=== PATIENT | female | born 1970 | race African-American/Black ===

== ENCOUNTER 2017-03-03 10:04 | Observation (INO) | payer OTHER ==
[2017-03-03] MEDS ORDERED: Ketorolac Tromethamine 60 MG/2 ML VIAL ONE (10:57)
[2017-03-03] MEDS ORDERED: Nitroglycerin 2% Ointment 1 INCH/1 GM Packet ONE ×2 (10:57→12:19)
[2017-03-03] MEDS ORDERED: Nitroglycerin 0.4 MG TAB (25 Tab Bottle) ONE (11:01)
[2017-03-03 11:32] LABS: #Basophils 0.1 thou/uL (0.0-0.2); #Eosinphils 0.3 thou/uL (0.0-0.7); #Lymphocytes 1.6 thou/uL (1.20-3.40); #Monocytes 0.8 thou/uL (0.11-0.59); #Neutrophils 5.5 thou/uL (1.40-6.50); %Eosinophils 3.4 % (0.0-10.0); %Lymphocytes 19.8 % (21.0-51.0); Hematocrit 41.4 % (36.0-47.0); Mean Platelet Volume 7.2 fL (7.4-10.4); Red Blood Cell (RBC) Count 4.05 mill/uL (4.20-5.40); White Blood Cell (WBC) Count 8.3 thou/uL (4.8-10.8)
[2017-03-03 11:57] LABS: ALT (SGPT) 12 U/L (8-55); AST (SGOT) 25 U/L (5-34); Alkaline Phosphatase 86 U/L (40-150); Anion Gap 11 mmol/L (10-20); BUN (Urea Nitrogen) 9 mg/dL (7.0-18.7); Bilirubin, Total 0.4 mg/dL (0.2-1.2); CK (CPK) 205 U/L (29-168); Calc. Creatinine Clearance 0 mL/min (70-130); Calcium 8.9 mg/dL (7.8-10.44); Carbon Dioxide 20 mmol/L (22-29); Chloride 109 mmol/L (98-107); Estimated GFR-MDRD Greater than 90; Globulin 3.5 g/dL (2.4-3.5); Lipase 10 U/L (8-78); Magnesium 2.1 mg/dL (1.6-2.6); Protein, Total 7.3 g/dL (6.0-8.3)
[2017-03-03 12:00] LABS: Troponin I Less than 0.010 ng/mL (< 0.028)
--- NOTE | 2017-03-03 12:06 | RAD ---
SINGLE VIEW OF THE CHEST: Comparison: 11-05-14 History: Chest pain, back pain. FINDINGS: Single view of the chest shows a normal sized cardiomediastinal silhouette. There is no evidence of consolidation, mass, or pleural effusion. The bones are unremarkable. IMPRESSION: No evidence of acute cardiopulmonary disease. POS: [facility]
[2017-03-03] MEDS ORDERED: Labetalol HCl 100 MG/20 ML VIAL ONE (12:57)
[2017-03-03] MEDS ORDERED: Ondansetron ODT 4 MG TAB SL PRN (14:07)
[2017-03-03] MEDS ORDERED: Ondansetron HCl/PF 4 MG/2 ML Vial IVP PRN (14:07)
[2017-03-03] MEDS ORDERED: Simethicone Chewable 80 MG TAB PO PRN (14:29)
[2017-03-03] MEDS ORDERED: Milk Of Magnesia 30 ML UDCUP PO PRN (14:30)
[2017-03-03] MEDS ORDERED: Loperamide HCl 2 MG CAP PO PRN (14:30)
[2017-03-03] MEDS ORDERED: Acetaminophen 325 MG TAB PO PRN (14:30)
[2017-03-03 14:34] VITALS: BMI 25.9
[2017-03-03] MEDS ORDERED: PROVENTIL INHALER 6.7 G (200 INHALATIONS) INH PRN (14:45)
--- NOTE | 2017-03-03 14:48 | PDOC.EVN ---
Event Note - Event Note Event Note: H&P: [id number] #Hypertensive Emergency 2/2 3 days of medication noncompliance * cp/OCHOA/neck pain/back pain * CXR negative for infiltrate * trend cardiac enzymes * stress test if cardiac enzymes negative * restart Metoprolol, Lisinopril and Amlodipine * check labs in AM #Tobacco abuse * counseled on cessation Admit to tele.
[2017-03-03 15:05] LABS: Troponin I Less than 0.010 ng/mL (< 0.028)
[2017-03-03] MEDS: Ferrous Sulfate 325 MG TAB PO SCH (15:33)
[2017-03-03] MEDS: Metoprolol Tartrate 25 MG TAB PO SCH (15:33)
[2017-03-03] MEDS: HYDROcodone/Acetaminophen 5/325 mg Tablet PO PRN ×2 (15:33→19:40)
--- NOTE | 2017-03-03 16:14 | HP ---
DATE OF ADMISSION: 03/03/2017 TIME: 02:41 p.m. CHIEF COMPLAINT: Chest pain, neck pain, headache and back pain. HISTORY OF PRESENT ILLNESS: This is a very pleasant 46-year-old female who reports that she consist ently takes her home antihypertensive medications including hydrochlorothiazide 25 mg daily, lisinop ril 40 mg daily, metoprolol 12.5 mg b.i.d., amlodipine 10 mg b.i.d. and hydralazine 25 mg b.i.d., wh o presents with chest pain, neck pain, headache and back pain. She reports the symptoms started ove r the last 3 days as she has since ran out of her blood pressure medications. She does not complain of any blurry revision, nausea, diaphoresis or shortness of breath. REVIEW OF SYSTEMS: A 14-point review of systems is negative except as otherwise indicated above in the HPI. PAST MEDICAL HISTORY: 1. Hypertension. 2. Asthma. 3. Tobacco abuse. PAST SURGICAL HISTORY: Hysterectomy. FAMILY HISTORY: Reviewed and noncontributory to the presenting illness. SOCIAL HISTORY: The patient reports smoking 2 cigarettes per day for about 4 years. She usually sm okes when she is at work. She denies any alcohol or illicit drug use. ALLERGIES: No known drug allergies. MEDICATIONS, LABS AND IMAGING: Please refer to chart for details. These have been reviewed. PHYSICAL EXAMINATION: VITAL SIGNS: On presentation, blood pressure 189/117, pulse 74, respirations 18, temperature 98.21 and saturating 100% on room air. GENERAL: The patient was lying comfortably in bed when I entered the room in no acute distress reshma cee on the telephone. HEENT: Normocephalic and atraumatic. NECK: Supple. No rigidity. LYMPH NODES: No cervical or supraclavicular lymphadenopathy. CARDIOVASCULAR: S1 and S2 are audible with regular rate and rhythm. LUNGS: Clear to auscultation bilaterally with no wheezes, rales or rhonchi. ABDOMEN: Soft and nontender with positive bowel sounds. No guarding, rebound or rigidity. GENITOURINARY: No CVA tenderness bilaterally. No suprapubic tenderness either. MUSCULOSKELETAL: No calf tenderness bilaterally. EXTREMITIES: No clubbing, cyanosis or edema of the extremities. PSYCHIATRIC: Appropriate, cooperative. NEUROLOGIC: Alert and oriented x3, answering questions appropriately with judgment intact. SKIN: Warm and dry with moist mucous membranes. ASSESSMENT AND PLAN: This is a 46-year-old female presenting with chest pain, neck pain, headache a nd back pain. 1. Hypertensive emergency causing symptoms of chest pain, headache, neck pain and back pain. The p atient's initial cardiac enzymes are negative and EKG is unremarkable. We will trend a total of 3 s ets of cardiac enzymes to rule out \\\\"acute coronary syndrome, then check stress test. Cardiology h as been consulted from the emergency room. We will restart the patient's metoprolol, lisinopril and amlodipine. Her hydrochlorothiazide and hydralazine will be restarted if her blood pressure remain s elevated. I do not want to start all 5 blood pressure medications at once. Monitor blood pressur e and heart rate closely on telemetry. Chest x-ray has ruled out an acute infiltrate. Check labs i n the morning. 2. Tobacco abuse. The patient has been counseled on smoking cessation. 3. Admit to telemetry.
[2017-03-03 18:07] LABS: Troponin I Less than 0.010 ng/mL (< 0.028)
[2017-03-03] MEDS: Mometasone/Formoterol 120 PUFF INHALER INH SCH (19:10)
[2017-03-03] MEDS ORDERED: Lisinopril 20 MG TAB PO SCH (19:30)
--- NOTE | 2017-03-03 19:50 | PRG ---
DATE OF SERVICE: 03/03/2017 SUBJECTIVE: Ms. Porras is a pleasant 46-year-old woman with hypertensive heart disease. She ran out of her medicines a few days ago and her blood pressure became very high. She developed chest pain. OBJECTIVE GENERAL: She is feeling fine now. VITAL SIGNS: Blood pressure now 148/77, pulse 70 regular. Blood pressure on admission was 202/122. LUNGS: Clear. CARDIAC: Normal S1, normal S2. EXTREMITIES: There is no edema. The patient underwent cardiac catheterization on 11/2014 with normal coronary arteries. ASSESSMENT: 1. Hypertensive heart disease with uncontrolled hypertension secondary to running out of medication s. 2. The patient states her blood pressure is still running somewhat high. PLAN: 1. Change to Procardia-XL 90 mg a day. 2. Continue low dose beta blockers. 3. Continue AMARILIS inhibitors. 4. Okay with me to be released home tomorrow to follow up with her primary care physician. The pat ient does not need cardiac followup.
[2017-03-03 22:49] LABS: Troponin I Less than 0.010 ng/mL (< 0.028)
[2017-03-04] MEDS ORDERED: Hydrochlorothiazide 25 MG TAB PO SCH ×2 (00:45→09:00)
[2017-03-04 01:14] LABS: Bilirubin Negative (Negative); Blood, Urine Negative (Negative); Glucose, Urine (Dipstick) Negative (Negative); Ketone, Urine Negative (Negative); Nitrite Negative (Negative); Protein, Urine (Dipstick) Negative (Neg-Trace)
[2017-03-04 01:16] LABS: Bacteria/HPF 1+ HPF (None Seen); Hyaline Casts/LPF 0-3 HYALINE CAST LPF (0-3 Hyaline); WBC/HPF 0-3 HPF (0-3)
[2017-03-04 05:45] LABS: #Eosinphils 0.4 thou/uL (0.0-0.7); #Monocytes 0.6 thou/uL (0.11-0.59); #Neutrophils 4.1 thou/uL (1.40-6.50); %Basophils 0.5 % (0.0-1.0); %Eosinophils 5.1 % (0.0-10.0); %Lymphocytes 28.5 % (21.0-51.0); %Monocytes 8.6 % (0.0-10.0); Red Blood Cell (RBC) Count 3.91 mill/uL (4.20-5.40); White Blood Cell (WBC) Count 7.1 thou/uL (4.8-10.8)
[2017-03-04] MEDS ORDERED: NIFEdipine XL 90 MG TAB PO SCH (06:00)
[2017-03-04 06:04] LABS: Anion Gap 12 mmol/L (10-20); BUN (Urea Nitrogen) 8 mg/dL (7.0-18.7); Calc. Creatinine Clearance 101 mL/min (70-130); Carbon Dioxide 22 mmol/L (22-29); Chloride 108 mmol/L (98-107); Estimated GFR-MDRD Greater than 90; Magnesium 2.2 mg/dL (1.6-2.6)
[2017-03-04] MEDS: Mometasone/Formoterol 120 PUFF INHALER INH SCH (06:13)
[2017-03-04 07:38] VITALS: TEMP 98.3
--- NOTE | 2017-03-04 07:41 | PDOC.PN ---
- Subjective Encounter Start Date: 03/04/17 Encounter Start Time: 07:39 Subjective: No cp/sob -: Mild neck pain. Improving. - Objective MAR Reviewed: Yes Vital Signs & Weight: Vital Signs (12 hours) Temp Pulse Resp BP Pulse Ox 03/04/17 07:20 98.3 F 66 16 03/04/17 06:13 66 16 100 03/04/17 04:00 98.8 F 62 18 167/76 H 99 03/03/17 23:17 98.7 F 73 12 161/101 H 99 03/03/17 19:40 99 F 70 12 Weight Weight 140 lb 1.6 oz I&O: 03/03/17 03/04/17 03/05/17 06:59 06:59 06:59 Intake Total 300 Output Total 1200 Balance -900 Result Diagrams: 03/04/17 05:27 03/04/17 05:27 Phys Exam - Physical Examination Constitutional: NAD HEENT: moist MMs, sclera anicteric Neck: no nodes, no JVD Respiratory: no wheezing, no rales, no rhonchi Cardiovascular: no significant murmur, no rub Gastrointestinal: soft, non-tender, positive bowel sounds Neurological: non-focal Skin: no rash, normal turgor Dx/Plan (1) Chest pain Code(s): R07.9 - CHEST PAIN, UNSPECIFIED Status: Acute - Plan #Hypertensive Emergency 2/2 3 days of medication noncompliance * cp/OCHOA/neck pain/back pain * CXR negative for infiltrate * cardiac enzymes negative - no need for further w/u per cardiology * appreciate cardiology input * check labs in AM #Tobacco abuse * counseled on cessation Discharge home today: [id number]
[2017-03-04 07:57] VITALS: BP 132/63
--- NOTE | 2017-03-04 08:11 | DIS ---
DATE OF ADMISSION: 03/03/2017 DATE OF DISCHARGE: 03/04/2017 PRIMARY DISCHARGE DIAGNOSES: Hypertension emergency, resulting in neck pain, back pain, chest pain. SECONDARY DISCHARGE DIAGNOSIS: Medication complaints. HOSPITAL SUMMARY: This is a very pleasant 46-year-old female who ran out of all of her anti-hyperte nsion medications for 3 days prior to presentation. She came in with hypertensive emergency and had associated headache, neck pain and back pain. Chest x-ray was negative for infiltrate. Her cardia c enzymes were negative, thus ruling out acute coronary syndrome. Cardiology was consulted and did not recommend any further workup from a cardiac standpoint, but it is recommended adding Procardia w yovanah will be transmitted to her pharmacy today. I will also transmit all of her home blood pressure medications to the pharmacy so that she can start taking them today and avoid coming back in for th e same issue. With regards to tobacco abuse she has been counseled on cessation. DISCHARGE PHYSICAL EXAMINATION: GENERAL: The patient is lying comfortably in bed when I entered the room in no acute distress. HEENT: Normocephalic, atraumatic. NECK: Supple, no rigidity. LYMPH NODES: No cervical or supraclavicular lymphadenopathy. CARDIOVASCULAR: S1 and S2 audible. Regular rate and rhythm. LUNGS: Clear to auscultation bilaterally with no wheezes, rales or rhonchi. ABDOMEN: Soft, nontender with positive bowel sounds. No guarding, rebound or rigidity. : No CVA tenderness bilaterally. No suprapubic tenderness either. MUSCULOSKELETAL: No calf tenderness bilaterally. EXTREMITIES: No clubbing or cyanosis of the extremities. LABS AND IMAGING: Reviewed. Please refer to chart for details. DISCHARGE MEDICATIONS: Reviewed and reconciled. Please refer to chart for details. Procardia has been added as noted above. DISCHARGE PLAN/DISPOSITION: 1. Discharge home today. The patient has been cleared by Cardiology for discharge. 2. Follow up with PCP in 1 week. 3. Activity: As tolerated. 4. Continue cardiac diet.
[2017-03-04] MEDS: Ferrous Sulfate 325 MG TAB PO SCH (08:41)
[2017-03-04] MEDS: Metoprolol Tartrate 25 MG TAB PO SCH (08:41)
[2017-03-04] MEDS: HYDROcodone/Acetaminophen 5/325 mg Tablet PO PRN (08:45)
[2017-03-04] MEDS ORDERED: Aspirin 325 mg Enteric Coated Tablet PO SCH (09:00)
[2017-03-04] MEDS ORDERED: Ergocalciferol 1.25 MG(50,000 UNITS) CAP PO SCH (09:00)
[2017-03-04] MEDS ORDERED: Lisinopril 20 MG TAB PO SCH ×2 (09:00→21:00)
== END 2017-03-04 10:14 | disposition home or self-care (01) ==
LOC: ERS 10:04 → 2SW 12:30
PROVIDERS: ADMIT Family Medicine; ATTEND Family Medicine
DX: I16.1 Hypertensive emergency (principal); I10 Essential (primary) hypertension; J45.909 Unspecified asthma, uncomplicated; F17.200 Nicotine dependence, unspecified, uncomplicated; Z79.899 Other long term (current) drug therapy; Z90.710 Acquired absence of both cervix and uterus
CPT/HCPCS: 36415; 71010; 80048; 80053; 81001; 82550; 82553; 83690; 83735; 83880; 84484; 85025; 93005; 96361; 96374; G0378; J1885

== ENCOUNTER 2017-03-11 10:33 | Emergency (ER) | payer OTHER ==
[2017-03-11 11:56] LABS: #Basophils 0.1 thou/uL (0.0-0.2); #Eosinphils 0.2 thou/uL (0.0-0.7); #Lymphocytes 1.9 thou/uL (1.20-3.40); #Monocytes 0.6 thou/uL (0.11-0.59); #Neutrophils 4.7 thou/uL (1.40-6.50); %Basophils 0.8 % (0.0-1.0); %Eosinophils 2.3 % (0.0-10.0); %Lymphocytes 25.5 % (21.0-51.0); %Monocytes 8.5 % (0.0-10.0); Hematocrit 46.2 % (36.0-47.0); Red Blood Cell (RBC) Count 4.59 mill/uL (4.20-5.40); White Blood Cell (WBC) Count 7.5 thou/uL (4.8-10.8)
[2017-03-11] MEDS ORDERED: Ketorolac Tromethamine 30 MG/ML VIAL ONE (11:58)
[2017-03-11] MEDS ORDERED: Metoclopramide HCl 10 MG/2 ML VIAL ONE (11:58)
[2017-03-11 12:19] LABS: ALT (SGPT) 14 U/L (8-55); AST (SGOT) 23 U/L (5-34); Alkaline Phosphatase 96 U/L (40-150); Anion Gap 12 mmol/L (10-20); BUN (Urea Nitrogen) 19 mg/dL (7.0-18.7); Bilirubin, Total 0.7 mg/dL (0.2-1.2); Calc. Creatinine Clearance 0 mL/min (70-130); Carbon Dioxide 25 mmol/L (22-29); Chloride 102 mmol/L (98-107); Estimated GFR-MDRD Greater than 90; Globulin 3.9 g/dL (2.4-3.5); Protein, Total 8.4 g/dL (6.0-8.3)
--- NOTE | 2017-03-11 12:23 | CT ---
CT BRAIN WITHOUT CONTRAST: Date: 03/11/17 HISTORY: Headache. Dizziness. Nausea. FINDINGS: Comparison made with exam of 03/22/10. No evidence of acute infarct, hemorrhage, midline shift, or abnormal extra-axial fluid collections a re seen. The ventricular size is normal and the basilar cisterns are patent. The bony calvarium is i ntact. The visualized paranasal sinuses and mastoid air cells are well aerated. IMPRESSION: No CT evidence of acute intracranial process. POS: [facility]
== END 2017-03-11 13:55 | disposition home or self-care (01) ==
LOC: ERS 10:33
DX: R51 Headache (principal); I10 Essential (primary) hypertension; J45.909 Unspecified asthma, uncomplicated; Z79.899 Other long term (current) drug therapy
CPT/HCPCS: 36415; 70450; 80053; 85025; 96365; 96366; 96375; J1885; J2765

== ENCOUNTER 2017-04-18 15:45 | Emergency (ER) | payer OTHER | END 2017-04-18 16:00 | disposition home or self-care (01) | LOC: ERS 15:45 | DX: K11.7 Disturbances of salivary secretion (principal); I10 Essential (primary) hypertension; J45.909 Unspecified asthma, uncomplicated; F41.9 Anxiety disorder, unspecified; F32.9 Major depressive disorder, single episode, unspecified | CPT/HCPCS: 99283 ==

== ENCOUNTER 2017-04-30 21:55 | Emergency (ER) | payer OTHER ==
[2017-04-30] MEDS ORDERED: Dexamethasone 4 mg/ml Vial ONE (22:52)
[2017-04-30] MEDS ORDERED: Amlodipine 5 MG TAB ONE ×2 (22:52→22:53)
== END 2017-04-30 23:20 | disposition home or self-care (01) ==
LOC: ERS 21:55
DX: J06.9 Acute upper respiratory infection, unspecified (principal); I10 Essential (primary) hypertension; J45.909 Unspecified asthma, uncomplicated; F32.9 Major depressive disorder, single episode, unspecified; F41.9 Anxiety disorder, unspecified
CPT/HCPCS: 96372; 99406; J1100

== ENCOUNTER 2017-07-26 17:23 | Emergency (ER) | payer OTHER ==
[2017-07-26] MEDS ORDERED: traMADol HCl 50 MG TAB ONE (19:27)
[2017-07-26] MEDS ORDERED: Ibuprofen 200 MG TAB ONE (19:37)
[2017-07-26] MEDS ORDERED: Acetaminophen 325 MG TAB ONE (19:37)
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
== END 2017-07-26 19:38 | disposition home or self-care (01) ==
LOC: ERS 17:23
DX: S16.1XXA Strain of muscle, fascia and tendon at neck level, initial encounter (principal); S50.811A Abrasion of right forearm, initial encounter; I10 Essential (primary) hypertension; J45.909 Unspecified asthma, uncomplicated; F41.9 Anxiety disorder, unspecified; F32.9 Major depressive disorder, single episode, unspecified; Z79.899 Other long term (current) drug therapy; V43.63XA Car passenger injured in collision with pick-up truck in traffic accident, initial encounter
CPT/HCPCS: 70450; 72125

== ENCOUNTER 2018-03-23 15:37 | Emergency (ER) | payer OTHER ==
[2018-03-23] MEDS ORDERED: Metoclopramide HCl 10 MG/2 ML VIAL ONE (17:02)
[2018-03-23] MEDS ORDERED: diphenhydrAMINE 25 MG CAP ONE (17:02)
[2018-03-23] MEDS ORDERED: Lidocaine 5% Patch TD SCH (17:15)
[2018-03-23] MEDS ORDERED: cloNIDine 0.1 MG TAB ONE (18:03)
[2018-03-23] MEDS ORDERED: Ketorolac Tromethamine 30 MG/ML VIAL ONE (18:03)
== END 2018-03-23 19:21 | disposition home or self-care (01) ==
LOC: ERS 15:37
DX: I10 Essential (primary) hypertension (principal); R51 Headache; J45.909 Unspecified asthma, uncomplicated; F41.9 Anxiety disorder, unspecified; F32.9 Major depressive disorder, single episode, unspecified; F17.210 Nicotine dependence, cigarettes, uncomplicated
CPT/HCPCS: 96365; 96366; 96375; J1885; J2765

== ENCOUNTER 2018-04-24 21:09 | Emergency (ER) | payer OTHER, SELFPAY ==
[2018-04-24] MEDS ORDERED: cloNIDine 0.1 MG TAB ONE (22:01)
[2018-04-24] MEDS ORDERED: Ketorolac Tromethamine 30 MG/ML VIAL ONE (22:01)
[2018-04-24] MEDS ORDERED: diphenhydrAMINE 50 MG/ML VIAL ONE (22:01)
[2018-04-24] MEDS ORDERED: Metoclopramide HCl 10 MG/2 ML VIAL ONE (22:01)
[2018-04-24 22:05] LABS: #Basophils 0.1 thou/uL (0.0-0.2); #Eosinphils 0.3 thou/uL (0.0-0.7); #Lymphocytes 2.8 thou/uL (1.20-3.40); #Monocytes 0.7 thou/uL (0.11-0.59); #Neutrophils 4.6 thou/uL (1.40-6.50); %Basophils 1.2 % (0.0-1.0); %Eosinophils 3.8 % (0.0-10.0); %Lymphocytes 32.2 % (21.0-51.0); %Monocytes 8.7 % (0.0-10.0); %Neutrophils 54.2 % (42.0-75.0); Hemoglobin 13.4 g/dL (12.0-16.0); Mean Corpuscular HGB CONC 32.4 g/dL (32.0-36.0); Mean Corpuscular Volume 98.7 fL (78.0-98.0); Mean Platelet Volume 7.7 fL (7.4-10.4); Platelet Count 256 thou/uL (130-400); RBC Distribution Width 12.4 % (11.5-14.5); Red Blood Cell (RBC) Count 4.19 mill/uL (4.20-5.40); White Blood Cell (WBC) Count 8.5 thou/uL (4.8-10.8)
[2018-04-24 22:27] LABS: ALT (SGPT) 15 U/L (8-55); AST (SGOT) 20 U/L (5-34); Alkaline Phosphatase 102 U/L (40-150); Anion Gap 11 mmol/L (10-20); BUN (Urea Nitrogen) 19 mg/dL (7.0-18.7); Bilirubin, Total 0.4 mg/dL (0.2-1.2); Calc. Creatinine Clearance 0 mL/min (70-130); Calcium 9.4 mg/dL (7.8-10.44); Carbon Dioxide 24 mmol/L (22-29); Chloride 106 mmol/L (98-107); Estimated GFR-MDRD Greater than 90; Globulin 3.2 g/dL (2.4-3.5); Glucose 104 mg/dL (70-105); Potassium 3.4 mmol/L (3.5-5.1); Protein, Total 7.2 g/dL (6.0-8.3); Sodium 138 mmol/L (136-145)
[2018-04-24] MEDS ORDERED: Dexamethasone 10 MG/ML VIAL ONE (22:55)
== END 2018-04-25 00:09 | disposition home or self-care (01) ==
LOC: ERS 21:09
DX: I10 Essential (primary) hypertension (principal); R51 Headache; J45.909 Unspecified asthma, uncomplicated; F41.9 Anxiety disorder, unspecified; F32.9 Major depressive disorder, single episode, unspecified; F17.210 Nicotine dependence, cigarettes, uncomplicated; Z79.899 Other long term (current) drug therapy
CPT/HCPCS: 80053; 85025; 93005; 94760; 96365; 96366; 96375; J1100; J1200; J1885; J2765

== ENCOUNTER 2018-05-29 23:21 | Emergency (ER) | payer SELFPAY ==
--- NOTE | 2018-05-30 00:02 | RAD ---
RIGHT KNEE FOUR VIEWS: HISTORY: Knee pain. FINDINGS: There is a joint effusion present. There are no signs of fracture or dislocation. IMPRESSION: Suggestion of some moderate joint effusion. POS: [facility]
== END 2018-05-30 00:10 | disposition home or self-care (01) ==
LOC: ERS 23:21
DX: M25.561 Pain in right knee (principal); M25.461 Effusion, right knee; I10 Essential (primary) hypertension; J45.909 Unspecified asthma, uncomplicated; F17.210 Nicotine dependence, cigarettes, uncomplicated

== ENCOUNTER 2018-07-03 16:09 | Emergency (ER) | payer SELFPAY ==
[2018-07-03 17:13] LABS: #Basophils 0.1 thou/uL (0.0-0.2); #Eosinphils 0.3 thou/uL (0.0-0.7); #Lymphocytes 1.9 thou/uL (1.20-3.40); #Monocytes 0.7 thou/uL (0.11-0.59); %Basophils 0.8 % (0.0-1.0); %Eosinophils 3.8 % (0.0-10.0); %Lymphocytes 23.2 % (21.0-51.0); %Monocytes 8.9 % (0.0-10.0); %Neutrophils 63.3 % (42.0-75.0); Hemoglobin 14.4 g/dL (12.0-16.0); Mean Corpuscular HGB CONC 33.2 g/dL (32.0-36.0); Mean Corpuscular Hemoglobin 33.1 pg (27.0-31.0); Mean Corpuscular Volume 99.7 fL (78.0-98.0); Mean Platelet Volume 7.4 fL (7.4-10.4); Platelet Count 262 thou/uL (130-400); RBC Distribution Width 12.3 % (11.5-14.5); Red Blood Cell (RBC) Count 4.35 mill/uL (4.20-5.40)
[2018-07-03 17:35] LABS: Bilirubin Small (Negative); Blood, Urine Negative (Negative); Clarity CLOUDY (Clear); Glucose, Urine (Dipstick) Negative (Negative); Leukocyte Negative (Negative); Nitrite Negative (Negative); Protein, Urine (Dipstick) Negative (Neg-Trace); Specific Gravity, Urine 1.033 (1.002-1.036)
[2018-07-03 17:39] LABS: Anion Gap 10 mmol/L (10-20); BUN (Urea Nitrogen) 14 mg/dL (7.0-18.7); Calc. Creatinine Clearance 0 mL/min (70-130); Carbon Dioxide 24 mmol/L (22-29); Chloride 110 mmol/L (98-107); Estimated GFR-MDRD Greater than 90; Glucose 90 mg/dL (70-105); Potassium 3.7 mmol/L (3.5-5.1); Sodium 140 mmol/L (136-145)
[2018-07-03 17:40] LABS: ALT (SGPT) 13 U/L (8-55); AST (SGOT) 17 U/L (5-34); Alkaline Phosphatase 96 U/L (40-150); Bilirubin, Total 0.4 mg/dL (0.2-1.2); Calcium 9.2 mg/dL (7.8-10.44); Globulin 3.2 g/dL (2.4-3.5); Protein, Total 7.2 g/dL (6.0-8.3)
== END 2018-07-03 18:31 | disposition home or self-care (01) ==
LOC: ERS 16:09
DX: I10 Essential (primary) hypertension (principal); R51 Headache; J45.909 Unspecified asthma, uncomplicated; F17.210 Nicotine dependence, cigarettes, uncomplicated
CPT/HCPCS: 36415; 80053; 81003; 84484; 85025; 96372

== ENCOUNTER 2018-08-20 05:57 | Emergency (ER) | payer SELFPAY ==
[2018-08-20 07:12] LABS: #Basophils 0.1 thou/uL (0.0-0.2); #Eosinphils 0.2 thou/uL (0.0-0.7); #Lymphocytes 1.8 thou/uL (1.20-3.40); #Monocytes 0.7 thou/uL (0.11-0.59); #Neutrophils 4.7 thou/uL (1.40-6.50); %Basophils 0.7 % (0.0-1.0); %Eosinophils 2.8 % (0.0-10.0); %Lymphocytes 23.7 % (21.0-51.0); %Monocytes 9.5 % (0.0-10.0); %Neutrophils 63.3 % (42.0-75.0); Hemoglobin 14.6 g/dL (12.0-16.0); Mean Corpuscular HGB CONC 32.9 g/dL (32.0-36.0); Mean Corpuscular Hemoglobin 32.8 pg (27.0-31.0); Mean Corpuscular Volume 99.7 fL (78.0-98.0); Mean Platelet Volume 7.7 fL (7.4-10.4); Platelet Count 246 thou/uL (130-400); RBC Distribution Width 11.9 % (11.5-14.5); Red Blood Cell (RBC) Count 4.46 mill/uL (4.20-5.40); White Blood Cell (WBC) Count 7.4 thou/uL (4.8-10.8)
[2018-08-20 08:27] LABS: ALT (SGPT) 12 U/L (8-55); AST (SGOT) 17 U/L (5-34); Alkaline Phosphatase 100 U/L (40-150); Anion Gap 10 mmol/L (10-20); BUN (Urea Nitrogen) 10 mg/dL (7.0-18.7); Bilirubin, Total 0.3 mg/dL (0.2-1.2); Calc. Creatinine Clearance 0 mL/min (70-130); Calcium 9.4 mg/dL (7.8-10.44); Carbon Dioxide 23 mmol/L (22-29); Chloride 106 mmol/L (98-107); Estimated GFR-MDRD Greater than 90; Globulin 2.9 g/dL (2.4-3.5); Glucose 86 mg/dL (70-105); Lipase 22 U/L (8-78); Protein, Total 6.9 g/dL (6.0-8.3); Sodium 135 mmol/L (136-145)
[2018-08-20] MEDS ORDERED: Lisinopril 10 MG TAB ONE (08:42)
[2018-08-20] MEDS ORDERED: Metoprolol Tartrate 25 MG TAB ONE (08:42)
[2018-08-20] MEDS ORDERED: Ketorolac Tromethamine 30 MG/ML VIAL ONE (08:42)
[2018-08-20] MEDS ORDERED: Norepinephrine 4 MG/4 ML VIAL ONE (08:42)
--- NOTE | 2018-08-20 08:54 | CT ---
BRAIN CT WITHOUT IV CONTRAST: History: Headache. Back pain. FINDINGS: No focal mass or midline shift. No intra or extraaxial hemorrhage. Sinuses and mastoids are clear. IMPRESSION: No significant acute intracranial process. No mass or bleed. POS: [facility]
--- NOTE | 2018-08-20 08:56 | CT ---
CT ANGIOGRAM CHEST CT ANGIOGRAM ABDOMEN: Date: 08/20/18 HISTORY: Headache and back pain. High blood pressure. COMPARISON: 11/05/14. FINDINGS: CT angiogram of the chest and CT angiogram of the pelvis is performed. There is no evidence for aorti c aneurysm or dissection. There is very limited contrast in the pulmonary arteries, inadequate to milli luate for the possibility of PE. No mediastinal mass or adenopathy. No pleural effusion or pericardia l effusion. No significant acute pulmonary parenchymal process. In the abdomen, there is no evidence for aortic aneurysm or dissection. Visualized liver, gallbladder, pancreas, spleen, and adrenal gland s are unremarkable. No renal calculus or obstruction. There are some atherosclerotic plaques invol ving the right and left common iliac arteries, but no significant stenosis. The celiac artery, superi or mesenteric artery, inferior mesenteric artery, and renal arteries are patent. IMPRESSION: Unremarkable CT angiogram chest and CT angiogram abdomen. No evidence for aortic aneurysm or dissecti on. POS: [facility]
[2018-08-20] MEDS ORDERED: Hydrochlorothiazide 25 MG TAB PO SCH (09:00)
[2018-08-20 09:18] LABS: Bilirubin Negative (Negative); Blood, Urine Negative (Negative); Clarity CLEAR (Clear); Glucose, Urine (Dipstick) Negative (Negative); Leukocyte Negative (Negative); Nitrite Negative (Negative); Protein, Urine (Dipstick) Negative (Neg-Trace); Urobilinogen 0.2 mg/dL (0.2-1.0); pH, Urine 7.5 (5.0-9.0)
[2018-08-20 09:22] LABS: Specific Gravity, Urine 1.056 (1.002-1.036)
[2018-08-20] MEDS ORDERED: cloNIDine 0.1 MG TAB ONE (09:50)
[2018-08-20] MEDS ORDERED: Iopamidol 370 76% 100 ML VIAL ONE (12:51)
== END 2018-08-20 10:30 | disposition home or self-care (01) ==
LOC: ERS 05:57
DX: I10 Essential (primary) hypertension (principal); R51 Headache; F17.210 Nicotine dependence, cigarettes, uncomplicated
CPT/HCPCS: 36415; 70450; 71275; 80053; 81003; 83690; 83880; 84443; 84484; 85025; 93005; 96374; J1885; Q9967

== ENCOUNTER 2018-09-16 14:13 | Emergency (ER) | payer SELFPAY ==
[2018-09-16 14:49] LABS: #Eosinphils 0.2 thou/uL (0.0-0.7); #Lymphocytes 1.5 thou/uL (1.20-3.40); #Monocytes 0.4 thou/uL (0.11-0.59); #Neutrophils 5.3 thou/uL (1.40-6.50); %Basophils 0.4 % (0.0-1.0); %Eosinophils 2.9 % (0.0-10.0); %Lymphocytes 20.1 % (21.0-51.0); %Monocytes 5.5 % (0.0-10.0); %Neutrophils 71.1 % (42.0-75.0); Hemoglobin 13.4 g/dL (12.0-16.0); Mean Corpuscular HGB CONC 31.8 g/dL (32.0-36.0); Mean Corpuscular Hemoglobin 31.9 pg (27.0-31.0); Mean Platelet Volume 6.8 fL (7.4-10.4); Platelet Count 247 thou/uL (130-400); RBC Distribution Width 11.9 % (11.5-14.5); Red Blood Cell (RBC) Count 4.18 mill/uL (4.20-5.40); White Blood Cell (WBC) Count 7.4 thou/uL (4.8-10.8)
[2018-09-16 15:13] LABS: ALT (SGPT) 12 U/L (8-55); AST (SGOT) 18 U/L (5-34); Albumin 4.1 g/dL (3.5-5.0); Alkaline Phosphatase 89 U/L (40-150); Anion Gap 12 mmol/L (10-20); BUN (Urea Nitrogen) 10 mg/dL (7.0-18.7); Bilirubin, Total 0.5 mg/dL (0.2-1.2); Calc. Creatinine Clearance 0 mL/min (70-130); Calcium 9.2 mg/dL (7.8-10.44); Carbon Dioxide 23 mmol/L (22-29); Chloride 107 mmol/L (98-107); Estimated GFR-MDRD Greater than 90; Globulin 2.7 g/dL (2.4-3.5); Glucose 93 mg/dL (70-105); Potassium 3.5 mmol/L (3.5-5.1); Protein, Total 6.8 g/dL (6.0-8.3); Sodium 138 mmol/L (136-145)
== END 2018-09-16 16:25 | disposition home or self-care (01) ==
LOC: ERS 14:13
DX: R19.7 Diarrhea, unspecified (principal)
CPT/HCPCS: 36415; 80053; 85025; 99284

== ENCOUNTER 2018-10-04 09:35 | Emergency (ER) | payer SELFPAY ==
[2018-10-04] MEDS ORDERED: Metoclopramide HCl 10 MG/2 ML VIAL ONE (11:02)
[2018-10-04] MEDS ORDERED: diphenhydrAMINE 50 MG/ML VIAL ONE (11:02)
[2018-10-04] MEDS ORDERED: Ketorolac Tromethamine 30 MG/ML VIAL ONE (11:02)
[2018-10-04 11:13] LABS: #Basophils 0.1 thou/uL (0.0-0.2); #Eosinphils 0.2 thou/uL (0.0-0.7); #Lymphocytes 1.8 thou/uL (1.20-3.40); #Monocytes 0.9 thou/uL (0.11-0.59); #Neutrophils 4.8 thou/uL (1.40-6.50); %Basophils 0.7 % (0.0-1.0); %Lymphocytes 23.7 % (21.0-51.0); %Monocytes 11.6 % (0.0-10.0); Hemoglobin 15.2 g/dL (12.0-16.0); Mean Corpuscular HGB CONC 32.4 g/dL (32.0-36.0); Mean Corpuscular Hemoglobin 32.7 pg (27.0-31.0); Mean Platelet Volume 7.4 fL (7.4-10.4); Platelet Count 323 thou/uL (130-400); RBC Distribution Width 12.3 % (11.5-14.5); Red Blood Cell (RBC) Count 4.66 mill/uL (4.20-5.40); White Blood Cell (WBC) Count 7.7 thou/uL (4.8-10.8)
[2018-10-04 11:26] LABS: ALT (SGPT) 24 U/L (8-55); AST (SGOT) 32 U/L (5-34); Albumin 4.6 g/dL (3.5-5.0); Alkaline Phosphatase 113 U/L (40-150); Anion Gap 12 mmol/L (10-20); BUN (Urea Nitrogen) 10 mg/dL (7.0-18.7); Bilirubin, Total 0.4 mg/dL (0.2-1.2); Calc. Creatinine Clearance 0 mL/min (70-130); Calcium 9.6 mg/dL (7.8-10.44); Carbon Dioxide 23 mmol/L (22-29); Chloride 108 mmol/L (98-107); Estimated GFR-MDRD Greater than 90; Globulin 3.6 g/dL (2.4-3.5); Glucose 97 mg/dL (70-105); Lipase 10 U/L (8-78); Potassium 3.8 mmol/L (3.5-5.1); Protein, Total 8.2 g/dL (6.0-8.3); Sodium 139 mmol/L (136-145)
[2018-10-04] MEDS ORDERED: Ondansetron PF 4 MG/2 ML Vial ONE (11:52)
--- NOTE | 2018-10-04 11:57 | CT ---
EXAM: Abdomen and pelvic CT scan with contrast: HISTORY: Abdominal pain prior hysterectomy. COMPARISON: 08/18/2013 FINDINGS: The visualized lung bases are clear. Liver: Unremarkable. Gallbladder:Unremarkable. Pancreas:Unremarkable Spleen:Unremarkable. Adrenal glands:Unremarkable. Kidneys:No renal calculus or acute obstruction.No solid or cystic mass. Minimal nonspecific fluid within nondilated small bowel and colon, this could be consistent with mild nonspecific enterocolitis. No CT evidence for acute appendicitis. The urinary bladder is unremarkable. No abscess, adenopathy, or abnormal fluid collection within the abdomen or pelvis. IMPRESSION: Minimal scattered fluid within nondilated large and small bowel, possibly nonspecific enterocolitis. No other significant acute process.
[2018-10-04] MEDS ORDERED: Morphine 4 MG/ML VIAL ONE (12:21)
[2018-10-04] MEDS ORDERED: ISOVUE-370 76%-LOCM 1 ML ONE (14:26)
== END 2018-10-04 12:55 | disposition home or self-care (01) ==
LOC: ERS 09:35
DX: K52.9 Noninfective gastroenteritis and colitis, unspecified (principal); R51 Headache; I10 Essential (primary) hypertension
CPT/HCPCS: 36415; 74177; 80053; 83690; 85025; 87804; 96365; 96375; J1200; J1885; J2270; J2405; J2765; Q9966

== ENCOUNTER 2019-01-13 13:12 | Emergency (ER) | payer SELFPAY ==
[2019-01-13 13:45] LABS: #Basophils 0.1 thou/uL (0.0-0.2); #Eosinphils 0.1 thou/uL (0.0-0.7); #Lymphocytes 2.2 thou/uL (1.20-3.40); #Monocytes 0.7 thou/uL (0.11-0.59); #Neutrophils 7.1 thou/uL (1.40-6.50); %Basophils 0.6 % (0.0-1.0); %Eosinophils 1.4 % (0.0-10.0); %Lymphocytes 21.6 % (21.0-51.0); %Monocytes 6.5 % (0.0-10.0); %Neutrophils 69.9 % (42.0-75.0); Hemoglobin 16.2 g/dL (12.0-16.0); Mean Corpuscular HGB CONC 33.2 g/dL (32.0-36.0); Mean Corpuscular Hemoglobin 33.1 pg (27.0-31.0); Mean Corpuscular Volume 99.7 fL (78.0-98.0); Mean Platelet Volume 7.6 fL (7.4-10.4); Platelet Count 271 thou/uL (130-400); RBC Distribution Width 12.7 % (11.5-14.5); Red Blood Cell (RBC) Count 4.89 mill/uL (4.20-5.40); White Blood Cell (WBC) Count 10.2 thou/uL (4.8-10.8)
[2019-01-13 14:01] LABS: Bilirubin Negative (Negative); Blood, Urine Negative (Negative); Clarity Turbid (Clear); Glucose, Urine (Dipstick) Normal (Negative); Leukocyte Negative Leu/uL (Negative); Nitrite Negative (Negative); Protein, Urine (Dipstick) Negative (Neg-Trace); Urobilinogen Normal mg/dL (Less than 2)
[2019-01-13] MEDS ORDERED: Ondansetron PF 4 MG/2 ML Vial ONE (14:01)
[2019-01-13] MEDS ORDERED: Morphine 4 MG/ML VIAL ONE (14:01)
[2019-01-13 14:15] LABS: ALT (SGPT) 16 U/L (8-55); AST (SGOT) 23 U/L (5-34); Albumin 4.3 g/dL (3.5-5.0); Alkaline Phosphatase 91 U/L (40-150); Anion Gap 14 mmol/L (10-20); BUN (Urea Nitrogen) 5 mg/dL (7.0-18.7); Bilirubin, Total 0.6 mg/dL (0.2-1.2); Calc. Creatinine Clearance 0 mL/min (70-130); Calcium 9.7 mg/dL (7.8-10.44); Carbon Dioxide 22 mmol/L (22-29); Chloride 105 mmol/L (98-107); Estimated GFR-MDRD Greater than 90; Globulin 3.2 g/dL (2.4-3.5); Glucose 94 mg/dL (70-105); Lipase 6 U/L (8-78); Potassium 3.8 mmol/L (3.5-5.1); Protein, Total 7.5 g/dL (6.0-8.3); Sodium 137 mmol/L (136-145)
--- NOTE | 2019-01-13 14:37 | ULT ---
Sonogram right upper quadrant complete HISTORY: HISTORY: Right quadrant pain. FINDINGS: Gallbladder has a appearance. Common duct is 0.2 cm. Liver unremarkable without biliary dil atation. No free fluid. IMPRESSION: No evidence of gallstones or biliary obstruction. No significant abnormalities are demons trated.
--- NOTE | 2019-01-13 15:05 | RAD ---
SINGLE VIEW CHEST: Date: 01/13/19 COMPARISON: 03/03/17. HISTORY: Dizziness. FINDINGS: Single view of the chest shows a normal sized cardiomediastinal silhouette. There is no evidence of c onsolidation, mass, or pleural effusion. The bones are unremarkable. IMPRESSION: No evidence of acute cardiopulmonary disease. POS: [facility]
--- NOTE | 2019-01-13 15:39 | CT ---
CT ABDOMEN AND PELVIS WITH IV CONTRAST 01/13/2019 CLINICAL INFORMATION: Chest pain after eating one day ago. Pain now radiates into the right upper and lower quadrants into the back. Pain is intermittent. COMPARISON: 10/04/2018 and CTA abdomen on 08/20/2018 Technique: Multiple contiguous axial CT images are obtained through the abdomen and pelvis with IV contrast. Cor onal reformatted images are provided. FINDINGS: Lower Chest: There is a low-density focus seen at the medial aspect right lung base which appears to represent a mildly prominent lymph node. This is stable when compared to a prior study on 08/20/2013 and suggests a benign finding. A 6 mm pleural based pulmonary nodule is seen at the left lung base. T his does measure larger in size when compared to study on 08/10/2018 where this measured approximately 5 mm. No additional pulmonary nodule is seen. Vessels: Minimal vascular calcifications are seen in the abdominal aorta and right iliac arteries. Abdomen: Portal vein:Patent Gallbladder: Within normal limits for CT imaging. Liver: within normal limits. Spleen: within normal limits. Pancreas: within normal limits. Adrenals: within normal limits. Kidneys: within normal limits. Bowel: Questionable thickening involving the transverse colon, but this is probably related to incomp lete distention. Loops of small bowel are normal in caliber. Appendix: The appendix is visualized and normal in caliber. Peritoneum: No fluid collection is seen. Mesentery and Retroperitoneum: No enlarged mesenteric or retroperitoneal lymph nodes. Abdominal Wall: within normal limits. Pelvis: Reproductive Organs: Evidence of prior hysterectomy. A 2.2 cm low-density structure seen in the right adnexal region likely related to right ovarian cyst. Pelvis: Trace amount of free fluid in the lower pelvis. Bladder: Incompletely distended but otherwise grossly normal in appearance. Bones: Facet degenerative change seen in the lower lumbar spine. No suspicious lytic or sclerotic oss eous lesions are identified. IMPRESSION: 1. 1. Left lower lobe pleural-based pulmonary nodule which is larger in size compared to study on 019. Follow-up CT scan examination in 6 months is recommended. 2. Suggested thickening in the region of the transverse colon most likely be related to incomplete di stention. There is no pericolonic inflammatory changes seen. There are otherwise no acute findings seen within the abdomen or pelvis. 3. Trace free fluid in the pelvis. 4. Evidence of hysterectomy.
[2019-01-13] MEDS ORDERED: Meclizine HCl 25 MG TAB ONE (15:47)
[2019-01-13] MEDS ORDERED: ISOVUE-370 76%-LOCM 1 ML ONE (16:06)
== END 2019-01-13 17:21 | disposition home or self-care (01) ==
LOC: ERS 13:12
DX: R11.2 Nausea with vomiting, unspecified (principal); R42 Dizziness and giddiness; I10 Essential (primary) hypertension
CPT/HCPCS: 71045; 74177; 76705; 80053; 81003; 83690; 83880; 84484; 85025; 93005; 96361; 96374; 96375; J2270; J2405; J8597; Q9966

== ENCOUNTER 2019-02-08 19:06 | Inpatient (IN) | payer SELFPAY ==
--- NOTE | 2019-02-08 20:40 | CT ---
CT head noncontrast HISTORY: Left-sided numbness. COMPARISON: 08/20/2018 FINDINGS: There is no evidence of acute intracranial hemorrhage or infarct. The ventricles appear nor mal in size, shape and position. There is no mass effect or shift of midline structures. Visualized paranasal sinuses remain well aerated. IMPRESSION: No acute intracranial abnormalities are demonstrated.
[2019-02-08 21:15] LABS: #Basophils 0.1 thou/uL (0.0-0.2); #Eosinphils 0.3 thou/uL (0.0-0.7); #Lymphocytes 2.9 thou/uL (1.20-3.40); #Monocytes 0.5 thou/uL (0.11-0.59); #Neutrophils 4.4 thou/uL (1.40-6.50); %Basophils 0.9 % (0.0-1.0); %Lymphocytes 35.5 % (21.0-51.0); %Monocytes 6.6 % (0.0-10.0); Hemoglobin 13.8 g/dL (12.0-16.0); Mean Corpuscular HGB CONC 33.9 g/dL (32.0-36.0); Mean Corpuscular Hemoglobin 33.8 pg (27.0-31.0); Mean Corpuscular Volume 99.6 fL (78.0-98.0); Mean Platelet Volume 7.9 fL (7.4-10.4); Platelet Count 240 thou/uL (130-400); RBC Distribution Width 12.5 % (11.5-14.5); Red Blood Cell (RBC) Count 4.08 mill/uL (4.20-5.40); White Blood Cell (WBC) Count 8.2 thou/uL (4.8-10.8)
[2019-02-08 21:38] LABS: ALT (SGPT) 13 U/L (8-55); AST (SGOT) 17 U/L (5-34); Albumin 4.1 g/dL (3.5-5.0); Alkaline Phosphatase 104 U/L (40-150); Anion Gap 11 mmol/L (10-20); BUN (Urea Nitrogen) 9 mg/dL (7.0-18.7); Bilirubin, Total 0.2 mg/dL (0.2-1.2); Calc. Creatinine Clearance 0 mL/min (70-130); Calcium 9.1 mg/dL (7.8-10.44); Carbon Dioxide 23 mmol/L (22-29); Chloride 106 mmol/L (98-107); Estimated GFR-MDRD Greater than 90; Globulin 2.9 g/dL (2.4-3.5); Glucose 98 mg/dL (70-105); Potassium 3.2 mmol/L (3.5-5.1); Sodium 137 mmol/L (136-145)
[2019-02-08 21:48] LABS: BHCG - Serum Negative (NEGATIVE); Pregs Control Background? CLEAR/WHITE (CLR/WHITE); Pregs Control Bar Appear? YES (CONTROL BAR)
[2019-02-08] MEDS ORDERED: hydrALAZINE 20 MG/ML VIAL ONE (21:52)
[2019-02-08] MEDS ORDERED: Aspirin 325 MG TAB ONE (21:52)
[2019-02-09] MEDS ORDERED: Potassium Chloride 20 MEQ TAB ONE (00:44)
[2019-02-09 00:48] LABS: Troponin I Less than 0.010 ng/mL (< 0.028)
[2019-02-09] MEDS ORDERED: Acetaminophen 650 MG Suppository PR PRN (02:59)
[2019-02-09] MEDS ORDERED: Ondansetron PF 4 MG/2 ML Vial IVP PRN (02:59)
[2019-02-09] MEDS ORDERED: Ondansetron ODT 4 MG TAB PO PRN (02:59)
[2019-02-09] MEDS ORDERED: hydrALAZINE 20 MG/ML VIAL SLOW IVP PRN (03:10)
[2019-02-09 03:34] LABS: Troponin I Less than 0.010 ng/mL (< 0.028)
--- NOTE | 2019-02-09 04:07 | HP ---
PRIMARY CARE DOCTOR: The patient goes to [facility]. CODE STATUS: The patient is full code. TIME OF EVALUATION: 12:00 a.m. CHIEF COMPLAINT: Right-sided numbness. HISTORY OF PRESENT ILLNESS: A 48-year-old female patient with past medical history of hypertension. The patient is noncompliant and came to the hospital after having right-sided numbness for the past few days. No clear triggers, no alleviating factors. On and off slurred speech associated with unsteady gait. The symptom started insidiously, and it has been getting gradually worse to the point that she has been unable to do her activities of daily living from this problem. REVIEW OF SYSTEMS: All other systems were reviewed and negative except for the findings mentioned above. PAST MEDICAL HISTORY: As mentioned in the HPI. PAST SURGICAL HISTORY: Hysterectomy. FAMILY HISTORY:Reviewed and non contributory for current presentation PSYCHIATRIC HISTORY: Anxiety. SOCIAL HISTORY: No alcohol, no drugs, no smoking history. ALLERGIES: NO KNOWN DRUG ALLERGIES. MEDICATIONS: Reported medications are none. The patient is noncompliant. PHYSICAL EXAMINATION: VITAL SIGNS: On presentation, blood pressure is 230/109 with heart rate 83, respiratory rate 18, temperature 98.2, pain 0/10, oxygen saturation was 99% on room air. GENERAL APPEARANCE: The patient is alert, oriented, in no acute distress. HEENT: Eyes: Normal. ENT: Moist oral mucosa. Anicteric. No JVD. RESPIRATORY: Bilateral air entry. No rales. No wheezes. Symmetric expansion. CARDIOVASCULAR: Normal rate, regular rhythm. No murmurs. No gallop. No edema. ABDOMEN: Soft. Normal bowel sounds. MUSCULOSKELETAL: Baseline range of motion and strength. SKIN: Warm, intact. No pallor. No rash. No redness. Capillary refill seems to be intact. NEUROLOGIC: The patient has right-sided weakness, mostly seen on the right lower extremity. The rest of extremities seem to be at baseline. PSYCHIATRIC: The patient is in good mood. No anxiety. Optimal judgment. DIAGNOSTIC DATA: EKG was reviewed. The patient has sinus rhythm with some PVCs , ventricular rate 74, ME 134, QRS 90, QT corrected 432, some T-wave inversions in V4 to V6 about lateral ischemia. Brain CT was done. The patient has no acute intracranial abnormalities. LABORATORY DATA: Labs were reviewed. The patient has white count of 8.2, hemoglobin 13.8, MCV 99.6, platelet count 240. Sodium 137, potassium 3.2, chloride 106, carbon dioxide 23, anion gap 11, BUN 9, creatinine 0.71, GFR greater than 90, glucose 98, calcium 9.1, total bilirubin 0.2. LFTs were negative. Troponin was negative x2. Serum total protein is 7, albumin 4.1, globulin 2.9, albumin to globulin ratio is 1.4. Serum test was negative. ASSESSMENT AND PLAN: The patient will be placed in the hospital for following medical problems. 1. New-onset right-sided weakness, could be secondary to possible stroke. We will do a stroke protocol with echo, MRI, and carotid Doppler. We will follow with Neurology and consult Neurology and follow recommendations. 2. Hypertensive urgency. The patient presented with high blood pressure. We will not treat aggressively at this point due to new presentation with acute neurological symptoms. We will allow for permissive hypertension over the very first 24 hours and then we will adjust treatment for high blood pressure. 3. Deep vein thrombosis prophylaxis. Job ID: [id number] [facility]
[2019-02-09 06:21] LABS: #Eosinphils 0.2 thou/uL (0.0-0.7); #Lymphocytes 1.8 thou/uL (1.20-3.40); #Monocytes 0.5 thou/uL (0.11-0.59); #Neutrophils 4.3 thou/uL (1.40-6.50); %Basophils 0.5 % (0.0-1.0); %Eosinophils 3.2 % (0.0-10.0); %Lymphocytes 26.6 % (21.0-51.0); %Monocytes 7.4 % (0.0-10.0); %Neutrophils 62.3 % (42.0-75.0); Hemoglobin 13.7 g/dL (12.0-16.0); Mean Corpuscular HGB CONC 32.2 g/dL (32.0-36.0); Mean Corpuscular Hemoglobin 31.8 pg (27.0-31.0); Mean Corpuscular Volume 98.6 fL (78.0-98.0); Mean Platelet Volume 7.9 fL (7.4-10.4); Platelet Count 242 thou/uL (130-400); RBC Distribution Width 12.3 % (11.5-14.5); Red Blood Cell (RBC) Count 4.32 mill/uL (4.20-5.40); White Blood Cell (WBC) Count 6.9 thou/uL (4.8-10.8)
[2019-02-09 06:24] LABS: Anion Gap 12 mmol/L (10-20); BUN (Urea Nitrogen) 8 mg/dL (7.0-18.7); Calc. Creatinine Clearance 0 mL/min (70-130); Carbon Dioxide 19 mmol/L (22-29); Cardiac Risk 3.7 (Less than 4.5); Chloride 110 mmol/L (98-107); Cholesterol 168 mg/dl (< 200 Desired); Estimated GFR-MDRD Greater than 90; Glucose 98 mg/dL (70-105); HDL Cholesterol 45 mg/dL (>60 Neg Risk); LDL Cholesterol, Calculated 114 mg/dL; Potassium 3.9 mmol/L (3.5-5.1); Sodium 137 mmol/L (136-145); Triglycerides 45 mg/dL (Less than 150)
[2019-02-09 06:28] LABS: Troponin I Less than 0.010 ng/mL (< 0.028)
[2019-02-09] MEDS ORDERED: Acetaminophen 325 MG TAB ONE (08:52)
[2019-02-09] MEDS ORDERED: Aspirin 325 MG TAB ONE (08:52)
[2019-02-09] MEDS ORDERED: Enoxaparin Sodium 40 MG/0.4 ML SYRINGE ONE (08:52)
[2019-02-09] MEDS: Enoxaparin Sodium 40 MG/0.4 ML SYRINGE SC SCH (08:57)
[2019-02-09] MEDS: Aspirin 325 mg Enteric Coated Tablet PO SCH (08:57)
[2019-02-09] MEDS: Acetaminophen 325 MG TAB PO PRN ×2 (08:57→20:21)
--- NOTE | 2019-02-09 10:03 | ULT ---
BILATERAL CAROTID DUPLEX ULTRASOUND: DATE: 02/09/19 HISTORY: Stroke. TECHNIQUE: Barkley scale ultrasound with color flow and spectral Doppler imaging of the extracranial carotid artery systems performed bilaterally. FINDINGS: There is plaque formation on either side. The peak systolic velocity in the right ICA measures 69 cm/second with an end-diastolic velocity of 2 2 cm/second and a systolic ratio of 0.77. The peak systolic velocity in the left ICA measures 99 cm/second with an end-diastolic velocity of 35 cm/second and a systolic ratio of 0.93. Flow in both vertebral arteries remains antegrade. IMPRESSION: No evidence of hemodynamically significant stenosis. POS: [facility]
--- NOTE | 2019-02-09 11:26 | MRI ---
MRI BRAIN WITHOUT CONTRAST: HISTORY: Stroke CORRELATION: CT scan from 02/08/2019. FINDINGS: There is a small focus of restricted diffusion in the left thalamus. There are multiple foci of T2 pr olongation in the periventricular white matter, consistent with chronic small vessel ischemic disease. The ventricular size is appropriate and the basilar cisterns are patent. No evidence of acute transcortical infarct, hemorrhage, midline shift or abnormal extra-axial fluid c ollections is seen. Low-lying cerebellar tonsils are seen. There is mild mucosal disease in the paranasal sinuses. IMPRESSION: Acute lacunar infarction in the left thalamus.
[2019-02-09] MEDS: Atorvastatin Calcium 40 MG TAB PO SCH (20:21)
[2019-02-10 04:54] VITALS: BMI 27.0
[2019-02-10] MEDS ORDERED: Amlodipine 10 MG TAB PO SCH (07:45)
[2019-02-10] MEDS: Enoxaparin Sodium 40 MG/0.4 ML SYRINGE SC SCH (08:44)
[2019-02-10] MEDS: Aspirin 325 mg Enteric Coated Tablet PO SCH (08:44)
[2019-02-10] MEDS: Acetaminophen 325 MG TAB PO PRN ×3 (08:45→18:06)
[2019-02-10] MEDS ORDERED: Lisinopril 10 MG TAB PO SCH (09:00)
--- NOTE | 2019-02-10 09:15 | CON ---
DATE OF CONSULTATION: 02/10/2019 CONSULTING PHYSICIAN: Hospitalist Service. IMPRESSION: 1. Lacunar stroke in the left thalamus. 2. Hypertension secondary to noncompliance. PLAN: 1. Aspirin 81 mg per day. 2. Lipitor 40 mg per day. 3. Echocardiogram. HISTORY OF PRESENT ILLNESS: Ms. Porras is a 48-year-old black female, who came in with complaints of right harpreet-numbness involving the face, arm, and leg. Her symptoms have improved since yesterday. She saw some residual numbness on the right side of the face by her report. She has never had anything like this in the past. She came in quite hypertensive with blood pressure of 200/112. She reports that she ran out of her blood pressure medication. She reportedly took aspirin briefly in the past and she thought that it upset her stomach. She has been restarted on aspirin since admission. Her laboratory studies showed unremarkable CBC and a lipid ratio of 3.7. Renal function was normal. She had an MRI of the brain done, which showed a lacunar infarction in the left thalamus. Her carotid ultrasound does not show any significant stenosis. Echocardiogram is pending. PAST MEDICAL HISTORY: Hypertension. ALLERGIES: PNEUMOCOCCAL VACCINE. SOCIAL HISTORY: No tobacco use or illicit drug use. FAMILY HISTORY: Unremarkable. MEDICATIONS: Medication list was reviewed. REVIEW OF SYSTEMS: Ten-system review of systems is otherwise negative. PHYSICAL EXAMINATION: GENERAL: She is a well-nourished, middle-aged woman, in no distress. VITAL SIGNS: Blood pressure 198/108, pulse 69, respirations 16, and temperature 97.9. HEENT: Pupils are equal and reactive. Conjunctivae are clear. Oropharynx clear. Cranium, normocephalic and atraumatic. NECK: Supple. No lymphadenopathy. EXTREMITIES: No cyanosis, clubbing, or edema. NEUROLOGIC: She is alert and appropriate. Her speech is fluent and clear. Cranial nerves were intact other than the subjective decreased sensation in the right lower face. Motor exam showed good strength bilaterally. There is no tremor or dysmetria present. She can walk independently. No abnormal movements were present. Plantar responses were downgoing. SUMMARY: This is a middle-aged woman with poorly controlled hypertension. She suffered a lacunar infarction in the left thalamus. Her symptoms are improving. I agree with your current treatment and evaluation. Job ID: [id number]
--- NOTE | 2019-02-10 12:22 | PDOC.HOSPP ---
- Subjective Subjective: Seen and examined. States that numbness and tingling in the arm and face are improving. Still with mild weakness on the right. BP needs controlled. All questions answered in detail. - Objective Vital Signs & Weight: Vital Signs (12 hours) Temp Pulse Pulse Pulse Pulse Resp BP 02/10/19 11:11 97.9 F 66 20 02/10/19 10:00 72 75 71 02/10/19 08:44 69 200/109 H 02/10/19 08:00 02/10/19 07:23 98.1 F 69 20 02/10/19 04:00 97.9 F 69 16 BP BP BP BP Pulse Ox 02/10/19 11:11 201/101 H 99 02/10/19 10:00 213/123 H 216/123 H 220/106 H 02/10/19 08:44 02/10/19 08:00 100 02/10/19 07:23 200/108 H 100 02/10/19 04:00 198/108 H 100 Weight Weight 143 lb I&O: 02/09/19 02/10/19 02/11/19 06:59 06:59 06:59 Intake Total 480 Balance 480 Result Diagrams: 02/09/19 06:00 02/09/19 06:00 Radiology Reviewed by me: Yes (MRI brain) Hospitalist ROS - Review of Systems All other systems reviewed; all pertinent +/- noted in HPI/Subj - Medication Medications: Active Medications Generic Name Dose Route Start Last Admin Trade Name Freq PRN Reason Stop Dose Admin Acetaminophen 650 mg 02/09/19 02:59 02/10/19 08:45 Tylenol PO 650 mg Q4H PRN Administration Headache/Fever/Mild Pain (1-3) Aspirin 325 mg 02/09/19 09:00 02/10/19 08:44 Ecotrin PO 325 mg DAILY MINOO Administration Atorvastatin Calcium 40 mg 02/09/19 21:00 02/09/19 20:21 Lipitor PO 40 mg HS MINOO Administration Enoxaparin Sodium 40 mg 02/09/19 09:00 02/10/19 08:44 Lovenox SC 40 mg 0900 MINOO Administration Hydralazine HCl 10 mg 02/09/19 03:10 02/09/19 15:17 Apresoline SLOW IVP 10 mg Q4H PRN Administration BP > 220/110 Lisinopril 10 mg 02/10/19 09:00 02/10/19 08:44 Zestril PO 10 mg DAILY MINOO Administration - Exam General Appearance: NAD Eye: PERRL, anicteric sclera Eye - other findings: EOMI ENT: no oropharyngeal lesions, moist mucosa Neck: supple, symmetric, no lymphadenopathy Heart: RRR, no murmur, no gallops, no rubs, normal peripheral pulses Respiratory: CTAB, no wheezes, no rales, no ronchi, normal chest expansion Gastrointestinal: soft, non-tender, non-distended, normal bowel sounds, no guarding, no rigidity Extremities: no edema Skin: no lesions, no rashes Neurological: CN's grossly intact. negative: normal sensation to touch, speech deficit, vision deficit Neurological - other findings: Numbress and tingling on the right. +4/5 motor on right upper and lower Musculoskeletal: no muscle wasting Psychiatric: normal affect, A&O x 3 Hosp A/P (1) CVA (cerebral vascular accident) Code(s): I63.9 - CEREBRAL INFARCTION, UNSPECIFIED Status: Acute (2) Malignant hypertension Code(s): I10 - ESSENTIAL (PRIMARY) HYPERTENSION Status: Acute (3) Hyperlipidemia Code(s): E78.5 - HYPERLIPIDEMIA, UNSPECIFIED Status: Acute (4) Obesity Code(s): E66.9 - OBESITY, UNSPECIFIED Status: Chronic - Plan Plan: Stroke unit Neurology consult, recommendations appreciated Stroke team consult CVA regimen: -ASA -Statin -Joshua inh MRI brain positive for acute thalamic CVA Echo US carotid Metabolic work up Malignant HTN, needs to be controlled prior to D/c PT/OT/ST Replace electrolytes as needed GI and DVT PPX
[2019-02-10] MEDS ORDERED: cloNIDine 0.1mg/24 Hour PATCH TD SCH (18:00)
[2019-02-10] MEDS: Lisinopril 10 MG TAB PO SCH (20:53)
[2019-02-10] MEDS: Atorvastatin Calcium 40 MG TAB PO SCH (20:53)
[2019-02-11] MEDS ORDERED: Amlodipine 10 MG TAB PO SCH (09:00)
[2019-02-11] MEDS: Aspirin 325 mg Enteric Coated Tablet PO SCH (09:07)
[2019-02-11] MEDS: Enoxaparin Sodium 40 MG/0.4 ML SYRINGE SC SCH (09:08)
[2019-02-11] MEDS: Acetaminophen 325 MG TAB PO PRN (09:08)
[2019-02-11] MEDS: Lisinopril 10 MG TAB PO SCH (09:08)
[2019-02-11 11:32] VITALS: BP 152/92; TEMP 98.1
--- NOTE | 2019-02-14 05:49 | PQF ---
RADHA POLANCO ERIK [id number] CLINICAL DOCUMENTATION CLARIFICATION FORM: POST DISCHARGE Addendum to original discharge summary date: ____ Late entry note date: __ DATE:02-14-2019 ATTN:Dr. Fredo Abarca Please exercise your independent, professional judgment in responding to the clarification form. Clinical indicators are provided on the bottom of this form for your review Based on the below indicators can you please specify what the patient actually has. Please check appropriate box(s): [ ] Hemiplegia Specify: [ ] Non dominant side [ ] Dominant side Status: [ ] Complete [ ] Incomplete [ ] Weakness (please specify anatomical area) Specify: [ ] Non dominant side [ ] Dominant side [ ] Right sided numbness [ XX ] Other diagnosis please specify: ____Defer to specialist, please query Neurology. Thanks [ ] Unable to determine CLINICAL INDICATORS: HP 02/[address] Bland Chief complaint: right sided numbness HP 02/[address] Bland ROS: Neurologic- The patient has right sided weakness , mostly seen on the right lower extremity. The rest of extremities seem to be at baseline Consult 02/[address] Villa She came in quite hypertensive with blood pressure of 200/112 PN 02/[address] Yoo Cerebral Infarction Status: acute ED 02/09 Pt reports the numbness started on the right side of her face and has gradually radiated down to her right arm and right leg HP 02/[address] Bland New onset right sided weakness RISK FACTORS: HP 02/09 Dr. Bland- Hypertension 02/09 Dr. Bland- Hypertensive Urgency 02/09 Dr. Bland- Ran out BP meds Consult- CVA Consult- Obesity TREATMENT: Neurology Consult Imaging- MRI brain Imaging- Brain CT AUG 12- Aspirin 325 mg AUG 12- Lovenox (This form is maintained as a part of the permanent medical record) 2014 [employer]. All Rights Reserved Sandra [email or web address] [not provided] MTDD
--- NOTE | 2019-02-14 18:51 | PQF ---
RADHA POLANCO TODD A MD [id number] CLINICAL DOCUMENTATION CLARIFICATION FORM: POST DISCHARGE Addendum to original discharge summary date: ____ Late entry note date: __ DATE: 02-14-2019 ATTN:Manny Stallworth Please exercise your independent, professional judgment in responding to the clarification form. Clinical indicators are provided on the bottom of this form for your review Based on the below indicators can you please specify what the patient actually has. Please check appropriate box(s): [ ] Hemiplegia Specify: [ ] Non dominant side [ ] Dominant side Status: [ ] Complete [ ] Incomplete [ ] Weakness (please specify anatomical area) Specify: [ ] Non dominant side [ ] Dominant side [ ] Right sided numbness [ ] Other diagnosis please specify: [ ] Unable to determine CLINICAL INDICATORS: HP 02/[address] Bland Chief complaint: right sided numbness HP 02/[address] Bland ROS: Neurologic- The patient has right sided weakness , mostly seen on the right lower extremity. The rest of extremities seem to be at baseline Consult 02/[address] Villa She came in quite hypertensive with blood pressure of 200/112 PN 02/[address] Yoo Cerebral Infarction Status: acute ED 02/09 Pt reports the numbness started on the right side of her face and has gradually radiated down to her right arm and right leg HP 02/[address] Bland New onset right sided weakness RISK FACTORS: HP 02/09 Dr. Bland- Hypertension HP 02/09 Dr. Bland- Hypertensive Urgency HP 02/09 Dr. Bland- Ran out BP meds Consult- CVA Consult- Obesity TREATMENT: Neurology Consult Imaging- MRI brain Imaging-Brain CT AUG 12- Aspirin 325 mg AUG 12- Lovenox (This form is maintained as a part of the permanent medical record) 2014 [employer]. All Rights Reserved [email or web address] [not provided] MTDD
== END 2019-02-11 16:12 | disposition home or self-care (01) | DRG 66 ==
LOC: ERS 19:06 → ERHOLD 02-09 00:08 → 2SE 02-09 18:32
PROVIDERS: ADMIT Hospitalist; ATTEND Hospitalist
DX: I63.9 Cerebral infarction, unspecified (principal); R29.700 NIHSS score 0; I10 Essential (primary) hypertension; F41.9 Anxiety disorder, unspecified; E87.6 Hypokalemia; I16.0 Hypertensive urgency; E78.5 Hyperlipidemia, unspecified; E66.9 Obesity, unspecified; Z68.27 Body mass index [BMI] 27.0-27.9, adult; Z90.710 Acquired absence of both cervix and uterus; Z91.19 Patient's noncompliance with other medical treatment and regimen; Z88.7 Allergy status to serum and vaccine; R47.81 Slurred speech
CPT/HCPCS: 36415; 70450; 70551; 80048; 80053; 80061; 84484; 84703; 85025; 93005; 93306; 93880; 96374; J0360; J1650

== ENCOUNTER 2019-08-07 15:56 | Emergency (ER) | payer OTHER, SELFPAY | END 2019-08-07 16:50 | disposition home or self-care (01) | LOC: ERS 15:56 | DX: J06.9 Acute upper respiratory infection, unspecified (principal); I10 Essential (primary) hypertension; F41.9 Anxiety disorder, unspecified; F32.9 Major depressive disorder, single episode, unspecified; Z79.899 Other long term (current) drug therapy; Z86.73 Personal history of transient ischemic attack (TIA), and cerebral infarction without residual deficits | CPT/HCPCS: 99283 ==

== ENCOUNTER 2020-01-02 17:14 | Emergency (ER) | payer OTHER ==
[2020-01-02] MEDS ORDERED: HYDROcodone/Acetaminophen 10/325 mg Tablet ONE (17:31)
--- NOTE | 2020-01-02 17:52 | RAD ---
Exam:Left ankle 3 views HISTORY: Pain and injury COMPARISON: None FINDINGS: Preserved joint spaces. Intact ankle mortise. No significant soft tissue swelling or fractu re. IMPRESSION: No fracture.
== END 2020-01-02 18:35 | disposition home or self-care (01) ==
LOC: ERS 17:14
DX: S93.402A Sprain of unspecified ligament of left ankle, initial encounter (principal); I10 Essential (primary) hypertension; F41.9 Anxiety disorder, unspecified; F32.9 Major depressive disorder, single episode, unspecified; X50.1XXA Overexertion from prolonged static or awkward postures, initial encounter

== ENCOUNTER 2020-05-20 15:39 | Outpatient (CLI) | payer OTHER ==
--- NOTE | 2020-05-20 16:14 | CT ---
CT OF THE THORAX WITHOUT IV CONTRAST INDICATION: Follow-up lung nodules COMPARISON: Prior CTA aortic dissection protocol dated August 20, [address] the abdomen and pelvis with contrast dated January 13, 2019 FINDINGS: LUNGS: There is a small subpulmonic pulmonary nodule within the medial aspect of the posterior segmen t of the right upper lobe on image 42 series 3. This is stable to the prior exam. There is a 3 mm pulmonary nodule within the anterior segment of the right upper lobe on image 60 of s eries 3, not definitely seen on the prior exam. No suspicious pulmonary nodules identified in the right lower lobe. The previously seen 5 mm pulmonary nodule in the left lower lobe is no longer identified. There is a new 3 mm pulmonary nodule within the superior segment of the left lower lobe. There is a small calcified granuloma within the medial aspect of the left lower lobe. There are areas of subsegmental volume loss within the lingula. No suspicious pulmonary nodule is seen within the left upper lobe. Pleural spaces: Clear Lymph nodes: No pathologically enlarged lymph nodes. Heart and great vessels: The lack of IV contrast limits interrogation of the heart and great vessels. There is scattered thoracic and coronary artery calcifications. Upper abdomen: Visualized aspects of the upper abdomen appear within normal limits. Osseous structures: No acute osseous abnormality. IMPRESSION: 1. The previously seen pulmonary nodule in the left lower lobe measuring approximately 5 mm is no jean kayley identified. There is a new 3 mm pulmonary nodule in the right upper lobe. A new 3 mm pulmonary nodule seen within the superior segment of the left lower lobe. Follow-up CT evaluation in one year t o document stability or resolution is recommended
== END 2020-05-20 15:40 | disposition home or self-care (01) ==
LOC: BICCT 15:39
PROVIDERS: ATTEND Student in an Organized Health Care Education/Training Program
DX: R91.1 Solitary pulmonary nodule (principal); R91.8 Other nonspecific abnormal finding of lung field
CPT/HCPCS: 71250

== ENCOUNTER 2020-06-25 11:12 | Outpatient (CLI) | payer OTHER ==
--- NOTE | 2020-06-25 11:41 | MMO ---
Bilateral MAMMO Bilat Screen [facility]DI. CLINICAL HISTORY: Patient is 49 years old and is seen for screening. The patient has the following family history of breast cancer: paternal aunt. The patient has no personal history of cancer. VIEWS: The views performed were: bilateral craniocaudal and bilateral mediolateral oblique. This study has been interpreted with the assistance of computer-aided detection. MAMMOGRAM FINDINGS: There are scattered fibroglandular densities. There are no suspicious masses, suspicious calcifications, or new areas of architectural distortion. IMPRESSION: THERE IS NO MAMMOGRAPHIC EVIDENCE OF MALIGNANCY. A ROUTINE FOLLOW-UP MAMMOGRAM IN 1 YEAR IS RECOMMENDED. ACR BI-RADS Category 1 - Negative MAMMOGRAPHY NOTE: 1. A negative mammogram report should not delay a biopsy if a dominant of clinically suspicious mass is present. 2. Approximately 10% to 15% of breast cancers are not detected by mammography. 3. Adenosis and dense breasts may obscure an underlying neoplasm. Reported by: JOSE PEREA MD Electonically Signed: [id number]
== END 2020-06-25 11:13 | disposition home or self-care (01) ==
LOC: BICMAMMO 11:12
PROVIDERS: ATTEND Family Medicine
DX: Z12.31 Encounter for screening mammogram for malignant neoplasm of breast (principal); Z80.3 Family history of malignant neoplasm of breast
CPT/HCPCS: 77063; 77067

== ENCOUNTER 2020-10-14 11:19 | Emergency (ER) | payer OTHER ==
[2020-10-14] MEDS ORDERED: Ketorolac Tromethamine 30 MG/ML VIAL ONE (13:15)
== END 2020-10-14 13:44 | disposition home or self-care (01) ==
LOC: ERS 11:19
DX: S63.612A Unspecified sprain of right middle finger, initial encounter (principal); M71.21 Synovial cyst of popliteal space [Baker], right knee; W22.8XXA Striking against or struck by other objects, initial encounter; Z79.899 Other long term (current) drug therapy; I10 Essential (primary) hypertension
CPT/HCPCS: 96372; J1885

== ENCOUNTER 2021-07-22 11:28 | Emergency (ER) | payer OTHER ==
[2021-07-22 12:03] LABS: #Basophils 0.1 thou/uL (0.0-0.2); #Eosinphils 0.2 thou/uL (0.0-0.7); #Lymphocytes 2.2 thou/uL (1.20-3.40); #Monocytes 0.7 thou/uL (0.11-0.59); #Neutrophils 5.7 thou/uL (1.40-6.50); %Basophils 0.6 % (0.0-1.0); %Eosinophils 2.2 % (0.0-10.0); %Lymphocytes 25.1 % (21.0-51.0); %Neutrophils 64.2 % (42.0-75.0); Hemoglobin 14.4 g/dL (12.0-16.0); Mean Corpuscular HGB CONC 32.1 g/dL (32.0-36.0); Mean Corpuscular Hemoglobin 32.6 pg (27.0-31.0); Mean Platelet Volume 7.4 fL (7.4-10.4); Platelet Count 277 thou/uL (130-400); RBC Distribution Width 12.8 % (11.5-14.5); White Blood Cell (WBC) Count 8.9 thou/uL (4.8-10.8)
[2021-07-22 12:17] LABS: ALT (SGPT) 13 U/L (8-55); AST (SGOT) 18 U/L (5-34); Albumin 4.4 g/dL (3.5-5.0); Alkaline Phosphatase 101 U/L (40-110); Anion Gap 9 mmol/L (10-20); BUN (Urea Nitrogen) 10 mg/dL (7.0-18.7); Bilirubin, Total 0.6 mg/dL (0.2-1.2); Calc. Creatinine Clearance 0 mL/min (70-130); Calcium 9.7 mg/dL (7.8-10.44); Carbon Dioxide 27 mmol/L (22-29); Chloride 107 mmol/L (98-107); Globulin 3.6 g/dL (2.4-3.5); Glucose 99 mg/dL (70-105); Lipase 7 U/L (8-78); Sodium 139 mmol/L (136-145)
[2021-07-22] MEDS ORDERED: Labetalol HCl 100 MG/20 ML VIAL ONE (12:24)
[2021-07-22] MEDS ORDERED: Aspirin Chewable 81 MG TAB ONE ×2 (12:24→12:25)
[2021-07-22] MEDS ORDERED: Acetaminophen 500 MG TAB ONE (12:24)
[2021-07-22] MEDS ORDERED: hydrALAZINE 20 MG/ML VIAL ONE ×2 (13:10→14:21)
[2021-07-22] MEDS ORDERED: Ondansetron ODT 4 MG TAB ONE (15:26)
== END 2021-07-22 15:16 | disposition home or self-care (01) ==
LOC: ERS 11:28
DX: R07.9 Chest pain, unspecified (principal); I10 Essential (primary) hypertension; J45.909 Unspecified asthma, uncomplicated; Z86.73 Personal history of transient ischemic attack (TIA), and cerebral infarction without residual deficits
CPT/HCPCS: 71045; 80053; 83690; 84484; 85025; 93005; 94760; 96374; 96375; 96376; J0360; Q0162